=== PATIENT | male | born 1995 | race Caucasian/White ===

== ENCOUNTER 2016-07-25 19:58 | Emergency (ER) | payer BC ==
[2016-07-25 20:34] VITALS: BP 143/72
[2016-07-25] MEDS ORDERED: Cephalexin CAP* 500 MG PO ONE (22:26)
--- NOTE | 2016-07-25 23:53 | UC ---
Marilyn Batista Alok, scribed for Julieth Carey DO on 07/25/16 at 212 . Minor Trauma HPI - HPI Summary HPI Summary: 21 y/o male presents to the ED following impact to the left side of his head from a lacrosse ball while wearing a helmet. Pt notes ear pain and a cut on the left side of the ear, and states that his helmet is fairly clean and he has not touched anything to his ear since. Pt denies any ross, vision changes, fatigue, mood changes, tinnitus, confusion, nausea, balance problems, or LOC. Pt additionally denies any fever, chills, diaphoresis, abdominal pain, ear ache, or eye drainage. - History of Current Complaint Chief Complaint: UCHeadInjury Stated Complaint: EAR LAC Time Seen by Provider: 07/25/16 21:12 Hx Obtained From: Patient Onset/Duration: Sudden Onset, Lasting Hours, Still Present Onset Of Pain: Immediate Severity Initially: Moderate Severity Currently: Moderate Mechanism Of Injury: Direct Blow Aggravating Factor(s): Nothing Alleviating Factor(s): Nothing Associated Signs And Symptoms: Negative: Loss Of Consciousness, Ecchymosis - Allergies/Home Medications Allergies/Adverse Reactions: Allergies Allergy/AdvReac Type Severity Reaction Status Date / Time No Known Allergies Allergy Verified 07/25/16 20:34 PMH/Surg Hx/FS Hx/Imm Hx Previously Healthy: Yes Endocrine History Of: Denies: Diabetes Cardiovascular History Of: Denies: Hypertension, Myocardial Infarction Respiratory History Of: Denies: COPD, Asthma - Family History Known Family History: Negative: Cardiac Disease, Hypertension, Diabetes - Social History Occupation: Student Alcohol Use: Weekly Alcohol Amount: 15 beers a week Substance Use Type: None Smoking Status (MU): Former Smoker Review of Systems Constitutional: Negative Skin: Other - lac 1cm Eyes: Negative ENT: Negative Respiratory: Negative Cardiovascular: Negative Gastrointestinal: Negative Genitourinary: Negative Motor: Negative Neurovascular: Negative Musculoskeletal: Negative Neurological: Negative Psychological: Negative All Other Systems Reviewed And Are Negative: Yes Physical Exam Triage Information Reviewed: Yes Appearance: Well-Appearing, No Pain Distress, Well-Nourished Vital Signs: Initial Vital Signs Temp 101.6 F 07/25/16 20:28 Pulse 84 07/25/16 20:28 Resp 20 03/02/17 20:28 BP 143/72 07/25/16 20:28 Pulse Ox 100 07/25/16 20:28 Vital Signs Reviewed: Yes Eyes: Positive: Conjunctiva Clear. Negative: Discharge ENT: Positive: Hearing grossly normal, TMs normal. Negative: Muffled/hoarse voice Neck: Positive: Supple, Nontender Respiratory: Positive: Lungs clear, Normal breath sounds, No respiratory distress, No accessory muscle use Cardiovascular: Positive: RRR, No Murmur Musculoskeletal Exam: Normal Neurological Exam: Normal Neurological: Positive: Muscle Tone Normal Psychological Exam: Normal Psychological: Positive: Age Appropriate Behavior Skin Exam: Normal Skin: Positive: Other - Warm, dry, normal color Minor Trauma Course/Dx - Differential Dx/Diagnosis Differential Diagnosis/HQI/PQRI: Contusion(s), Laceration(s), Other - concussion Provider Diagnoses: laceration Discharge - Discharge Plan Condition: Stable Disposition: HOME Prescriptions: Cephalexin CAP* [Keflex CAP*] 500 mg PO BID #10 cap Patient Education Materials: Laceration (ED) Referrals: [facility] HAROLDO Smith [Primary Care Provider] - If Needed Additional Instructions: CEPHALEXIN: The antibiotic you've been prescribed is a member of the cephalosporin class. This type of antibiotic covers a wide variety of infections, including those of the skin, lungs, and urinary tract. It's useful for staph infections. This antibiotic is slightly similar to the penicillin family. In rare cases , a person who is allergic to penicillin will also be allergic to this medication. If you have had a severe allergic reaction to penicillin, and have not taken this antibiotic since that time, notify your doctor. Antibiotics which cover many germs ("broad spectrum" antibiotics) are more likely to cause diarrhea or "yeast" infections. Women prone to vaginal yeast problems may suffer an attack after taking this antibiotic. In infants, oral thrush (white spots "stuck" on the cheek) or yeast diaper rash may result. See your doctor if these problems occur. Call at once if you develop itching, hives , shortness of breath, or lightheadedness. ANY TIME YOU TAKE AN ANTIBIOTIC, IT IS IMPORTANT TO REPLENISH THE BODY'S BALANCE OF "GOOD" BACTERIA BY EATING HIGH QUALITY CULTURED FOOD SUCH YOGURT, SAURKRAUT OR GAUDENCIO CHI AND/OR TAKING A PROBIOTIC SUPPLEMENT. The documentation as recorded by the Marilyn braun Alok accurately reflects the service I personally performed and the decisions made by me, Julieth Carey DO.
== END 2016-07-25 22:30 | disposition home or self-care (01) ==
LOC: UCEAST 19:58
DX: S01.312A Laceration without foreign body of left ear, initial encounter (principal); W21.09XA Struck by other hit or thrown ball, initial encounter; Y93.65 Activity, lacrosse and field hockey; Y92.9 Unspecified place or not applicable; F10.99 Alcohol use, unspecified with unspecified alcohol-induced disorder; Z87.891 Personal history of nicotine dependence
CPT/HCPCS: 12013; 99212; A9270-GY; G0463

== ENCOUNTER 2018-01-02 16:24 | Emergency (ER) | payer BC, OTHER ==
--- NOTE | 2018-01-02 18:42 | UC ---
Bite Injury/Animal HPI - HPI Summary HPI Summary: 22 yo male presents s/p exposure to bat while sleeping 2 days. He does not think he was bitten. It was advised that he undergo the rabies vaccination series. - History of Current Complaint Stated Complaint: BAT EXPOSURE Time Seen by Provider: 01/02/18 18:42 Hx Obtained From: Patient - Allergies/Home Medications Allergies/Adverse Reactions: Allergies Allergy/AdvReac Type Severity Reaction Status Date / Time No Known Allergies Allergy Verified 01/02/18 19:00 Home Medications: Home Medications MinoXIDil TAB* [Loniten TAB*] 10 mg PO BID 01/02/18 [History Confirmed 01/02/18] PMH/Surg Hx/FS Hx/Imm Hx - Additional Past Medical History Additional PMH: None Previously Healthy: Yes - Surgical History Surgical History: None - Family History Known Family History: Negative: Cardiac Disease, Hypertension, Diabetes - Social History Occupation: Student Lives: With Family Alcohol Use: Weekly Alcohol Amount: 15 beers a week Substance Use Type: None Smoking Status (MU): Former Smoker Review of Systems Constitutional: Negative Skin: Negative ENT: Negative Respiratory: Negative Cardiovascular: Negative Gastrointestinal: Negative Musculoskeletal: Negative Neurological: Negative Psychological: Negative All Other Systems Reviewed And Are Negative: Yes Physical Exam - Summary Physical Exam Summary: GENERAL: NAD. WDWN. No pain distress. SKIN: No appreciable bite christopher or puncture wounds. No streaking, bleeding, or drainage. NECK: Supple. Nontender. No lymphadenopathy. CHEST: No accessory muscle use. Breathing comfortably and in no distress. CV: Pulses intact NEURO: Alert. CN II-XII grossly intact. PSYCH: Age appropriate behavior. Triage Information Reviewed: Yes Vital Signs: Vital Signs: Temp Pulse Resp BP Pulse Ox 98.2 F 80 20 129/66 100 01/02/18 18:54 01/02/18 18:54 01/02/18 18:54 01/02/18 18:54 01/02/18 18:54 Vital Signs Reviewed: Yes Bite Injury Course/Dx - Course Course Of Treatment: tdap updated, rabies vaccine, and RIG administered per guidelines. - Differential Dx/Diagnosis Provider Diagnoses: Bat exposure Discharge - Sign-Out/Discharge Documenting (check all that apply): Patient Departure - Discharge Plan Condition: Stable Disposition: HOME Patient Education Materials: Rabies Vaccine (By injection), Rabies Immune Globulin (By injection), Rabies (ED) Referrals: [facility],[place] [Primary Care Provider] - Additional Instructions: If you develop a fever, shortness of breath, chest pain, new or worsening symptoms - please call your PCP or go to the ED. - Billing Disposition and Condition Condition: STABLE Disposition: Home
[2018-01-02] MEDS ORDERED: Rabies VIRUS VACCINE (Imovax)* 2.5 UNIT/ML 1 ML IM ONE (18:54)
[2018-01-02 19:00] VITALS: BP 129/66
[2018-01-02] MEDS ORDERED: Tetan/Diph/Pertus SYR(Tdap)* 0.5 ML SYR(BOOSTRIX) use SYR IM ONE (19:21)
[2018-01-02] MEDS ORDERED: Rabies Immune Globulin 2 ML* 150 UNITS/ML VIAL IM ONE (19:21)
[2018-01-02] MEDS ORDERED: Rabies Immune Globulin 10 ML* 150 UNIT/ML VIAL IM ONE (19:21)
== END 2018-01-02 19:50 | disposition home or self-care (01) ==
LOC: UCEAST 16:24
DX: Z20.3 Contact with and (suspected) exposure to rabies (principal); Z23 Encounter for immunization; Z87.891 Personal history of nicotine dependence
CPT/HCPCS: 90375; 90471; 90472; 90715; 96372; 99201; G0463